=== PATIENT | female | born 1945 | race Caucasian/White ===

== ENCOUNTER → 2017-04-02 | Day surgery (SDC) | payer MEDICARE ==
[~2017-04-02] MED LIST: APIX5TAB PO; FLEC100 PO; LACTATED RINGER'S 1000 ML INJ 1,000 ML ONE; LANSO15 PO; LEVO50TA4 PO; METO25 PO; ONABOTULINUMTOXINA INJ 100 UNITS/VIAL ONE; PROPOFOL 200 MG/20 ML AMP IV ONE; SODIUM CHLORIDE 0.9% INJ 10 ML ONE; ZANT150T2 PO
--- NOTE | 2017-04-02 13:16 | GIPROC ---
[facility] [address] [facility], [address] EGD WITH DILATION PROCEDURE REPORT EXAM DATE: 04/02/2017 PATIENT NAME: Sujata Diaz MR#: [id number] BIRTHDATE: 1945 ATTENDING: Michelle Saucedo MD ORDER #: [id number] CALENDERING SUPERVISOR: Liz Price CST and Damari Rodriguez RN STATUS: outpatient INDICATIONS: The patient is a 72 yr old female here for an EGD with dilation due to gastroparesis dysphagia PROCEDURE PERFORMED: EGD w/ directed submucosal injection(s), any substance EGD w/ dilation of esophagus via guidewire EGD w/ biopsy MEDICATIONS: None and Per Anesthesia. TOPICAL ANESTHETIC: none CONSENT: The patient understands the risks and benefits of the procedure and understands that these risks include, but are not limited to: sedation, allergic reaction, infection, perforation and/or bleeding. Alternative means of evaluation and treatment include, among others: physical exam, x-rays, and/or surgical intervention. The patient elects to proceed with this endoscopic procedure. medical equipment was checked for proper function. Hand hygiene and appropriate measures for infection prevention was taken. After the risks, benefits and alternatives of the procedure were thoroughly explained, Informed consent was verified, confirmed and timeout was successfully executed by the treatment team. The patient was anesthetized with topical anesthesia and the EC-2990i ([id number]) endoscope was introduced through the mouth and advanced to the second portion of the duodenum. The instrument was slowly withdrawn as the mucosa was fully examined. Gastritis antrum-biopsy BOTOX 100 units injected in pyloric channel-25 units in each quadrant. Dilation was performed at gastroesophageal junction. DILATOR: SIZE(S): RESISTANCE: HEME: APPEARANCE: Dilator: Savary over guidewire Size(s): 15 COMMENT: Retroflexed views revealed a hiatal hernia ADVERSE EVENTS: There were no complications. IMPRESSIONS: 1. Gastritis antrum-biopsy BOTOX 100 units injected in pyloric channel-25 units in each quadrant 2. Retroflexed views revealed a hiatal hernia RECOMMENDATIONS: 1. Await biopsy results. Biopsy results will not be ready for 7-10 days. If you don't hear from us in two weeks, call our office for biopsy results. 2. Anti-reflux regimen 3. Continue PPI 4. Dilatations PRN REPEAT EXAM: EGD pending biopsy results Michelle Saucedo MD eSigned: Michelle Saucedo MD 04/02/2017 1:16 PM cc: Octavio Bautista [facility] Lori Meza M.D. PATIENT NAME: Sujata Diaz Claudio MR#: [id number]
== END | disposition home or self-care (01) ==
LOC: ESDC 10:36
PROVIDERS: ATTEND Internal Medicine Gastroenterology
DX: K31.84 Gastroparesis (principal); R13.10 Dysphagia, unspecified; K29.70 Gastritis, unspecified, without bleeding; K44.9 Diaphragmatic hernia without obstruction or gangrene
CPT/HCPCS: 00740; 43236; 43239; 43248; 88305; J0585; J3010; J7120

== ENCOUNTER → 2018-02-27 | Outpatient (CLI) | payer MEDICARE ==
[~2018-02-27] VITALS: Ht 160 cm; Wt 60.6 kg
[~2018-02-27] MED LIST changes: +BIOT10TA PO; +CHLORHEXIDINE GLUCONATE 2 % 1 PACK (2 CLOTHS) TOPICAL PRN; +DEXTROSE 5% IN WATE 1000ML INJ 1,000 ML IV SCH; +DO NOT ADM ANY ANTICOAGULANT DRUGS PRN; +ESTR.3 PO; +FE FCAP; -FLEC100 PO; +FLEC1TAB8 PO; -LACTATED RINGER'S 1000 ML INJ 1,000 ML ONE; +LACTATED RINGER'S 1000 ML IV PRN; -LANSO15 PO; -LEVO50TA4 PO; +LEVO75TA3 PO; +LIDOCAINE HCL 1% PF 5 ML SYRINGE OTHER ONE; -METO25 PO; +METO25TA3 PO; +METOPROLOL TARTRATE 25 MG TAB PO PRN; +ONDANSETRON HCL 4 MG/2 ML VIAL IV ONE; +PLAQ200T PO; +POVIDONE IODINE 5% (ANTISEPSIS KIT) 4 APPLICATIONS EACH NARE PRN; +ROSU10 PO; +SODIUM CHLORID 0.9% 500 ML IV PRN; -SODIUM CHLORIDE 0.9% INJ 10 ML ONE; +SUCCINYLCHOLINE CHLORIDE 100 MG/5 ML SYRINGE IV PUSH ONE; -ZANT150T2 PO
--- NOTE | 2018-02-27 09:24 | EKG ---
Date Performed: 02/27/2018 Time Performed: 08:45:45 PTAGE: 73 years EKG: Sinus rhythm NORMAL ECG PREVIOUS TRACING : 05/25/2016 04.37 Compared to previous tracing, rate slower DOCTOR: Dominga Fuller Interpretating Date/Time 02/27/2018 09:23:17
--- NOTE | 2018-02-27 10:43 | GIPROC ---
[facility] [address] [facility]. [facility], [address] EGD WITH DILATION PROCEDURE REPORT EXAM DATE: 02/27/2018 PATIENT NAME: Sujata Diaz MR#: [id number] BIRTHDATE: 1945 ATTENDING: Michelle Saucedo MD ORDER #: [id number] CONTAINER PACKER OPERATOR: Tonny Haro and Carisa Cartwright STATUS: outpatient INDICATIONS: The patient is a 73 yr old female here for an EGD with dilation due to gastroparesis esophageal dysmotility PROCEDURE PERFORMED: EGD w/ biopsy EGD w/ dilation of esophagus via guidewire MEDICATIONS: None and Per Anesthesia. TOPICAL ANESTHETIC: none CONSENT: The patient understands the risks and benefits of the procedure and understands that these risks include, but are not limited to: sedation, allergic reaction, infection, perforation and/or bleeding. Alternative means of evaluation and treatment include, among others: physical exam, x-rays, and/or surgical intervention. The patient elects to proceed with this endoscopic procedure. medical equipment was checked for proper function. Hand hygiene and appropriate measures for infection prevention was taken. After the risks, benefits and alternatives of the procedure were thoroughly explained, Informed consent was verified, confirmed and timeout was successfully executed by the treatment team. The patient was anesthetized with topical anesthesia and the Pentax EG-2990i endoscope was introduced through the mouth and advanced to the second portion of the duodenum. The instrument was slowly withdrawn as the mucosa was fully examined. Duodenitis second portion/bulb-biopsy gastritis antrum-biopsy esophagitis distal esophagus -biopsy BOTOX injected in pyloric channel-100 units -25 units in each quadrant dilatation Savary 16,17. Dilation was performed at gastroesophageal junction. DILATOR: SIZE(S): RESISTANCE: HEME: APPEARANCE: Dilator: Savary over guidewire Size(s): 16,17 COMMENT: Retroflexed views revealed a hiatal hernia ADVERSE EVENTS: There were no complications. IMPRESSIONS: 1. Duodenitis second portion/bulb-biopsy gastritis antrum-biopsy esophagitis distal esophagus -biopsy BOTOX injected in pyloric channel-100 units -25 units in each quadrant dilatation Savary 16,17 2. Retroflexed views revealed a hiatal hernia RECOMMENDATIONS: 1. Await biopsy results. Biopsy results will not be ready for 7-10 days. If you don't hear from us in two weeks, call our office for biopsy results. 2. Anti-reflux regimen 3. Start PPI 4. Dilatations PRN 5. Avoid NSAIDS REPEAT EXAM: Return as needed for EGD egd in 3 years egd/botox as nedeed Michelle Saucedo MD eSigned: Michelle Saucedo MD 02/27/2018 10:43 AM cc: Dexter Meza M.D. DOCUMENT ADDENDUM eSigned: Michelle Saucedo MD 02/27/2018 12:07 PM Reason for addendum: [ ] Correction of inaccurate information [ ] Recently acquired lab/pathology results [x] Additional information Comments: egd with injection of a subsatnce-botox PATIENT NAME: Sujata Diaz MR#: [id number]
[2018-02-27 11:30] VITALS: BP 141/72; PULSE 63; RESP 16; TEMP 97.9; O2SAT 99
== END ==
LOC: HSDC 07:58
PROVIDERS: ATTEND Internal Medicine Gastroenterology
DX: R13.10 Dysphagia, unspecified (principal); K22.2 Esophageal obstruction; K44.9 Diaphragmatic hernia without obstruction or gangrene; K21.0 Gastro-esophageal reflux disease with esophagitis; K29.50 Unspecified chronic gastritis without bleeding; K22.0 Achalasia of cardia; I10 Essential (primary) hypertension; R00.2 Palpitations
CPT/HCPCS: 00731; 43236; 43248; 88305; 88312; 93005; C1769; J0330; J0585; J2405; J3010; J7120